=== PATIENT | female | born 1955 | race Caucasian/White ===

== ENCOUNTER → 2017-03-03 10:36 | Outpatient (CLI) | payer MEDICARE ==
[2017-03-03 11:02] LABS: BASOPHILS 0.6 % (0-2); EOSINOPHILS 6.3 % (0-7); HEMATOCRIT 35.4 % (36.0-48.0); HEMOGLOBIN 11.9 g/dL (12-16); IMMATURE GRANULOCYTES 0.3 % (0-5); MCH 30.2 pg (26.0-34.0); MCHC 33.6 g/dL (31.0-37.0); MCV 89.8 fL (80.0-100.0); MEAN PLATELET VOLUME 8.3 fL (7.4-10.4); MONOCYTES 11.4 % (2-11); NEUTROPHILS 50.4 % (40-80); RBC 3.94 10x6/uL (4.00-5.40); RDW 14.6 % (11.5-14.5); WBC 3.3 10x3/uL (4.8-10.8)
[2017-03-03 11:06] LABS: PLATELET COUNT 151 10x3/uL (130-400)
[2017-03-03 11:17] LABS: HEMOGLOBIN A1C 5.4 % (4.8-6.0)
[2017-03-03 11:39] LABS: ALBUMIN 3.6 g/dL (3.4-5.0); ANION GAP 9.2 mmol/L (8-16); BILIRUBIN - TOTAL 0.71 mg/dL (0.2-1.3); CALCIUM 9.2 mg/dL (8.5-10.1); CARBON DIOXIDE 27.3 mmol/L (21.0-32.0); CHOL - HDL RATIO 2.7 ratio (2.3-4.1); LDL-HDL RATIO 1.5 ratio (1.5-3.5); POTASSIUM - SERUM 4.5 mmol/L (3.5-5.1); PROTEIN - SERUM 6.6 g/dL (6.4-8.2); THYROID STIMULATING HORMONE 2.45 uIU/mL (0.36-3.74)
== END | disposition home or self-care (01) ==
LOC: D.LAB 03-02 09:15
PROVIDERS: Family Medicine
DX: Z00.01 Encounter for general adult medical examination with abnormal findings (principal); E55.9 Vitamin D deficiency, unspecified; J44.9 Chronic obstructive pulmonary disease, unspecified; E78.5 Hyperlipidemia, unspecified

== ENCOUNTER → 2017-03-31 09:45 | Outpatient (CLI) | payer MEDICARE ==
[~2017-03-31 09:45] MED LIST: BREO ELLIPTA 21 EACH; LIPITOR20 MG PO; MEDROL DOSE PACK4 MG PO; NEURONTIN600 MG PO; OMEPRAZOLE20 M1 PO; PEPCID20 MG PO; SOMA350 MG PO; SPIRIVA18 MCG INH; VITAMIN D5000 UNIT PO; VITAMIN E1000 UNI1 PO; ZOLOFT100 MG PO
[2017-03-31 10:17] LABS: BASOPHILS 0.6 % (0-2); EOSINOPHILS 6.5 % (0-7); HEMATOCRIT 36.2 % (36.0-48.0); HEMOGLOBIN 12.2 g/dL (12-16); IMMATURE GRANULOCYTES 0.3 % (0-5); LYMPHOCYTES 24.3 % (15-50); MCHC 33.7 g/dL (31.0-37.0); MCV 89.2 fL (80.0-100.0); MEAN PLATELET VOLUME 8.5 fL (7.4-10.4); MONOCYTES 12.6 % (2-11); NEUTROPHILS 55.7 % (40-80); PLATELET COUNT 163 10x3/uL (130-400); RBC 4.06 10x6/uL (4.00-5.40); RDW 14.2 % (11.5-14.5); WBC 3.4 10x3/uL (4.8-10.8)
[2017-04-01 09:15] LABS: IMMUNOGLOBULIN E 23 IU/mL (0-100)
[2017-04-01 12:17] LABS: IMMUNOGLOBULIN A 137 mg/dL (87-352); IMMUNOGLOBULIN G 678 mg/dL (700-1600)
[2017-04-03 17:11] LABS: FUNGAL - ASP FLAVUS Negative (Neg:<1:1); FUNGAL - ASP NIGER Negative (Neg:<1:1); FUNGAL - ASPER FUMIGATUS Negative (Neg:<1:1)
[2017-05-14 07:26] VITALS: BMI 29.7
== END | disposition home or self-care (01) ==
LOC: D.RT 09:45
PROVIDERS: Internal Medicine Pulmonary Disease
DX: J45.909 Unspecified asthma, uncomplicated (principal)

== ENCOUNTER 2017-05-14 06:09 | Day surgery (SDC) | payer MEDICARE ==
[~2017-05-14] VITALS: Ht 157.5 cm; Wt 73.6 kg
[2017-05-14] MEDS ORDERED: VITAMIN D5000 UNIT PO (07:14)
[2017-05-14] MEDS ORDERED: LIPITOR20 MG PO (07:14)
[2017-05-14] MEDS ORDERED: OMEPRAZOLE20 M1 PO (07:14)
[2017-05-14] MEDS ORDERED: PEPCID20 MG PO (07:14)
[2017-05-14] MEDS ORDERED: ZOLOFT100 MG PO (07:15)
[2017-05-14] MEDS ORDERED: SPIRIVA18 MCG INH (07:15)
[2017-05-14] MEDS ORDERED: BREO ELLIPTA 21 EACH (07:15)
[2017-05-14] MEDS ORDERED: MEDROL DOSE PACK4 MG PO (07:16)
[2017-05-14] MEDS ORDERED: SOMA350 MG PO (07:16)
[2017-05-14] MEDS ORDERED: VITAMIN E1000 UNI1 PO (07:17)
[2017-05-14 07:21] LABS: HEMATOCRIT 38.2 % (36.0-48.0); MCH 29.7 pg (26.0-34.0); MCV 87.2 fL (80.0-100.0); MEAN PLATELET VOLUME 8.6 fL (7.4-10.4); RBC 4.38 10x6/uL (4.00-5.40); WBC 5.6 10x3/uL (4.8-10.8)
[2017-05-14] MEDS ORDERED: NEURONTIN600 MG PO (07:22)
[2017-05-14 07:26] VITALS: BP 123/72; Ht 157.5 cm; Wt 73.6 kg
--- NOTE | 2017-05-14 09:45 | NUR ---
PT IS TO BE RESCHEDULED IN [address] DEWEY INFORMED
--- NOTE | 2017-05-14 16:20 | NUR ---
1045--IV DC'D. JOURDAN YATES 1110--DISCHARGE INSTRUCTIONS GIVEN, PT VERBALIZES UNDERSTANDING. PT OFF UNIT VIA WC. JOURDAN YATES
== END 2017-05-14 11:10 | disposition home or self-care (01) ==
LOC: D.OPS 06:09
PROVIDERS: Anesthesiology
DX: D12.4 Benign neoplasm of descending colon (principal); D12.3 Benign neoplasm of transverse colon; K64.8 Other hemorrhoids; K64.4 Residual hemorrhoidal skin tags; K57.30 Diverticulosis of large intestine without perforation or abscess without bleeding; Z01.812 Encounter for preprocedural laboratory examination

== ENCOUNTER → 2017-05-25 07:42 | Outpatient (CLI) | payer MEDICARE ==
[2017-05-14 07:26] VITALS: BMI 29.7
== END | disposition home or self-care (01) ==
LOC: D.RAD 05-18 08:00
DX: K62.5 Hemorrhage of anus and rectum (principal)

== ENCOUNTER → 2017-11-20 11:06 | Outpatient (CLI) | payer MEDICARE ==
[2017-05-14 07:26] VITALS: BMI 29.7
[2017-11-20 12:02] LABS: EOSINOPHILS 4.8 % (0-7); HEMOGLOBIN 12.4 g/dL (12-16); IMMATURE GRANULOCYTES 0.3 % (0-5); LYMPHOCYTES 20.7 % (15-50); MCH 28.9 pg (26.0-34.0); MCHC 33.5 g/dL (31.0-37.0); MCV 86.2 fL (80.0-100.0); MEAN PLATELET VOLUME 8.5 fL (7.4-10.4); MONOCYTES 9.8 % (2-11); NEUTROPHILS 63.4 % (40-80); PLATELET COUNT 198 10x3/uL (130-400); RBC 4.29 10x6/uL (4.00-5.40); RDW 14.1 % (11.5-14.5)
[2017-11-20 12:25] LABS: ALBUMIN 3.7 g/dL (3.4-5.0); ALKALINE PHOSPHATASE 60 U/L (46-116); ALT (SGPT) 26 U/L (10-68); BILIRUBIN - TOTAL 0.71 mg/dL (0.2-1.3); CALC OSMOLALITY 282 mosm/kg (275-300); CALCIUM 9.4 mg/dL (8.5-10.1); CARBON DIOXIDE 26.8 mmol/L (21.0-32.0); CHLORIDE - SERUM 107 mmol/L (98-107); CHOL - HDL RATIO 3.2 ratio (2.3-4.1); CHOLESTEROL, TOTAL 170 mg/dL (0-200); CREATININE - SERUM 0.8 mg/dL (0.6-1.3); GLUCOSE 109 mg/dL (74-106); HDL CHOLESTEROL 54 mg/dL (32-96); LDL CHOLESTEROL 95 mg/dL (0-100); LDL-HDL RATIO 1.8 ratio (1.5-3.5); POTASSIUM - SERUM 4.1 mmol/L (3.5-5.1); SODIUM 142 mmol/L (136-145); THYROID STIMULATING HORMONE 1.92 uIU/mL (0.36-3.74); TRIGLYCERIDE 106 mg/dL (30-200); UREA NITROGEN 10 mg/dL (7-18); eGFR NON AFRICAN AMERICAN 77 mL/min (90-120)
== END | disposition home or self-care (01) ==
LOC: D.LAB 11-11 09:45
PROVIDERS: Family Medicine
DX: M79.7 Fibromyalgia (principal); K62.5 Hemorrhage of anus and rectum; E78.00 Pure hypercholesterolemia, unspecified; J45.909 Unspecified asthma, uncomplicated

== ENCOUNTER → 2018-03-02 19:18 | Outpatient (CLI) | payer BC ==
[2017-05-14 07:26] VITALS: BMI 29.7
== END | disposition home or self-care (01) ==
LOC: D.MAMMO 15:15
DX: Z12.31 Encounter for screening mammogram for malignant neoplasm of breast (principal)

== ENCOUNTER 2019-03-25 17:39 | Outpatient (CLI) | payer BC ==
[2017-05-14 07:26] VITALS: BMI 29.7
== END 2019-03-25 23:59 | disposition home or self-care (01) ==
LOC: D.MAMMO 17:39
PROVIDERS: ATTEND Family Medicine
DX: Z12.31 Encounter for screening mammogram for malignant neoplasm of breast (principal)

== ENCOUNTER → 2019-06-07 11:14 | Outpatient (CLI) | payer BC ==
[2017-05-14 07:26] VITALS: BMI 29.7
[2019-06-07 12:06] LABS: BASOPHILS 0.8 % (0-2); EOSINOPHILS 6.6 % (0-7); HEMATOCRIT 35.3 % (36.0-48.0); HEMOGLOBIN 11.7 g/dL (12-16); IMMATURE GRANULOCYTES 0.3 % (0-5); LYMPHOCYTES 24.9 % (15-50); MCH 29.6 pg (26.0-34.0); MCHC 33.1 g/dL (31.0-37.0); MCV 89.4 fL (80.0-100.0); MEAN PLATELET VOLUME 8.5 fL (7.4-10.4); MONOCYTES 10.8 % (2-11); NEUTROPHILS 56.6 % (40-80); PLATELET COUNT 234 10x3/uL (130-400); RBC 3.95 10x6/uL (4.00-5.40); WBC 3.8 10x3/uL (4.8-10.8)
[2019-06-07 12:21] LABS: ALBUMIN 3.5 g/dL (3.4-5.0); ANION GAP 12.1 mmol/L (8-16); BILIRUBIN - TOTAL 0.55 mg/dL (0.2-1.3); CALCIUM 8.9 mg/dL (8.5-10.1); CARBON DIOXIDE 27.3 mmol/L (21.0-32.0); CHOL - HDL RATIO 3.2 ratio (2.3-4.1); CREATININE - SERUM 0.9 mg/dL (0.6-1.3); LDL-HDL RATIO 1.7 ratio (1.5-3.5); POTASSIUM - SERUM 4.4 mmol/L (3.5-5.1); PROTEIN - SERUM 6.1 g/dL (6.4-8.2)
== END | disposition home or self-care (01) ==
LOC: D.LAB 11:14
PROVIDERS: ATTEND Family Medicine
DX: E78.5 Hyperlipidemia, unspecified (principal); Z00.01 Encounter for general adult medical examination with abnormal findings

== ENCOUNTER → 2020-01-18 11:00 | Outpatient (CLI) | payer BC ==
[2017-05-14 07:26] VITALS: BMI 29.7
[2020-01-18 11:47] LABS: EOSINOPHILS 7.5 % (0-7); HEMATOCRIT 36.5 % (36.0-48.0); HEMOGLOBIN 12.2 g/dL (12-16); IMMATURE GRANULOCYTES 0.3 % (0-5); LYMPHOCYTES 28.2 % (15-50); MCH 29.6 pg (26.0-34.0); MCHC 33.4 g/dL (31.0-37.0); MCV 88.6 fL (80.0-100.0); MEAN PLATELET VOLUME 8.2 fL (7.4-10.4); MONOCYTES 12.4 % (2-11); NEUTROPHILS 50.6 % (40-80); RBC 4.12 10x6/uL (4.00-5.40); RDW 14.3 % (11.5-14.5); WBC 3.9 10x3/uL (4.8-10.8)
[2020-01-18 11:54] LABS: PLATELET COUNT 163 10x3/uL (130-400)
[2020-01-18 12:22] LABS: ALBUMIN 3.8 g/dL (3.4-5.0); ANION GAP 11.6 mmol/L (8-16); BILIRUBIN - TOTAL 0.55 mg/dL (0.2-1.3); CALCIUM 9.4 mg/dL (8.5-10.1); CARBON DIOXIDE 29.2 mmol/L (21.0-32.0); POTASSIUM - SERUM 3.8 mmol/L (3.5-5.1); PROTEIN - SERUM 6.9 g/dL (6.4-8.2)
== END | disposition home or self-care (01) ==
LOC: D.LAB 11:00
PROVIDERS: ATTEND Family Medicine
DX: R79.89 Other specified abnormal findings of blood chemistry (principal); R68.89 Other general symptoms and signs